=== PATIENT | male | born 1965 | race African-American/Black ===

== ENCOUNTER 2017-05-30 08:34 | Day surgery (SDC) | payer OTHER, SELFPAY ==
[2017-05-30] MEDS ORDERED: Acetaminophen 500 MG TAB PO SCH (09:00)
[2017-05-30] MEDS ORDERED: diphenhydrAMINE 25 MG CAP PO SCH (09:00)
[2017-05-30] MEDS ORDERED: Sodium Chloride 0.9% 20 ML ONE (09:04)
[2017-05-30 12:22] VITALS: TEMP 98.5
[2017-05-30 16:27] VITALS: BP 99/59
[2017-05-30 16:40] LABS: Anisocytosis SLIGHT = 6-15 cells (100X) (0-5/hpf); Band 2 % (5-11); Hematocrit 26.7 % (42.0-52.0); Mean Platelet Volume 6.5 fL (7.4-10.4); Neutrophil 73 % (42-75); White Blood Cell (WBC) Count 5.3 thou/uL (4.8-10.8)
== END 2017-05-30 16:20 | disposition home or self-care (01) ==
LOC: ONC/OP 08:34
PROVIDERS: ATTEND Internal Medicine Hematology & Oncology
PROC: 30233N1 Transfusion of Nonautologous Red Blood Cells into Peripheral Vein, Percutaneous Approach (ICD-10-PCS; principal; 2017-05-30)
DX: D64.9 Anemia, unspecified (principal); D69.6 Thrombocytopenia, unspecified; C90.00 Multiple myeloma not having achieved remission; F10.10 Alcohol abuse, uncomplicated; E87.1 Hypo-osmolality and hyponatremia; F17.210 Nicotine dependence, cigarettes, uncomplicated; M62.82 Rhabdomyolysis; I10 Essential (primary) hypertension; Z79.2 Long term (current) use of antibiotics; Z79.891 Long term (current) use of opiate analgesic; Z79.899 Other long term (current) drug therapy; Z98.890 Other specified postprocedural states
CPT/HCPCS: 36415; 36430; 85025; 86850; 86900; 86901; 99212; A4216; G0463; P9016

== ENCOUNTER 2017-06-19 08:02 | Day surgery (SDC) | payer MEDICAID ==
[2017-06-19] MEDS ORDERED: Sodium Chloride 0.9% 20 ML ONE (08:17)
[2017-06-19 08:53] VITALS: BP 121/80; TEMP 98.2
[2017-06-19 09:10] LABS: Calc. Creatinine Clearance 93 mL/min (70-130); Estimated GFR-MDRD Greater than 90
[2017-06-19] MEDS ORDERED: ZOLEDRONIC ACID IVPB SCH (09:45)
[2017-06-19] MEDS ORDERED: ADMIXTURE FEE IVPB SCH (09:45)
[2017-06-19] MEDS ORDERED: SODIUM CHLORIDE IVPB SCH (09:45)
[2017-06-19] MEDS ORDERED: Zoledronic Acid 4 MG, Admixture Fee 1 EACH in Sodium Chloride 0.9% 100 ML IVPB SCH (09:45)
== END 2017-06-19 13:41 | disposition home or self-care (01) ==
LOC: ONC/OP 08:02
PROVIDERS: ATTEND Nurse Practitioner Acute Care
DX: Z51.11 Encounter for antineoplastic chemotherapy (principal); C90.00 Multiple myeloma not having achieved remission; I10 Essential (primary) hypertension; F17.200 Nicotine dependence, unspecified, uncomplicated
CPT/HCPCS: 82565; 96365; A4216; J3489; J7050

== ENCOUNTER 2017-06-21 09:43 | Day surgery (SDC) | payer MEDICAID ==
[2017-06-21] MEDS ORDERED: BORTEZOMIB SC SCH (10:00)
[2017-06-21] MEDS ORDERED: ADMIXTURE FEE SC SCH (10:00)
[2017-06-21 10:10] VITALS: BP 106/73; TEMP 98.7
== END 2017-06-21 11:50 | disposition home or self-care (01) ==
LOC: ONC/OP 09:43
PROVIDERS: ATTEND Internal Medicine Hematology & Oncology
DX: Z51.11 Encounter for antineoplastic chemotherapy (principal); C90.00 Multiple myeloma not having achieved remission; D69.6 Thrombocytopenia, unspecified; E87.1 Hypo-osmolality and hyponatremia; F17.210 Nicotine dependence, cigarettes, uncomplicated; I12.9 Hypertensive chronic kidney disease with stage 1 through stage 4 chronic kidney disease, or unspecified chronic kidney disease; N18.2 Chronic kidney disease, stage 2 (mild); D64.9 Anemia, unspecified; J45.909 Unspecified asthma, uncomplicated; F41.8 Other specified anxiety disorders; Z79.2 Long term (current) use of antibiotics; Z79.891 Long term (current) use of opiate analgesic; Z79.899 Other long term (current) drug therapy; Z98.890 Other specified postprocedural states
CPT/HCPCS: 96401; J9041

== ENCOUNTER 2017-06-27 09:45 | Day surgery (SDC) | payer MEDICAID ==
[2017-06-27] MEDS ORDERED: ADMIXTURE FEE SC SCH (10:30)
[2017-06-27] MEDS ORDERED: BORTEZOMIB SC SCH (10:30)
[2017-06-27] MEDS ORDERED: Dexamethasone 4 MG TAB PO SCH (10:45)
[2017-06-27 15:58] VITALS: BP 143/78; TEMP 98.8
== END 2017-06-27 11:18 | disposition home or self-care (01) ==
LOC: ONC/OP 09:45
PROVIDERS: ATTEND Internal Medicine Hematology & Oncology
DX: Z51.11 Encounter for antineoplastic chemotherapy (principal); C90.00 Multiple myeloma not having achieved remission; I10 Essential (primary) hypertension; J45.909 Unspecified asthma, uncomplicated; F17.210 Nicotine dependence, cigarettes, uncomplicated; Z79.2 Long term (current) use of antibiotics; Z79.891 Long term (current) use of opiate analgesic; Z79.899 Other long term (current) drug therapy; Z98.890 Other specified postprocedural states
CPT/HCPCS: 96372; J8540; J9041

== ENCOUNTER 2017-07-06 10:06 | Day surgery (SDC) | payer MEDICAID ==
[~2017-07-06 10:06] MED LIST: ADMIXTURE FEE SC SCH; BORTEZOMIB SC SCH; Dexamethasone 4 MG TAB PO SCH
[2017-07-06 10:35] VITALS: BP 120/79; TEMP 97.9
== END 2017-07-06 14:04 | disposition home or self-care (01) ==
LOC: ONC/OP 10:06
PROVIDERS: ATTEND Internal Medicine Hematology & Oncology
DX: Z51.11 Encounter for antineoplastic chemotherapy (principal); C90.00 Multiple myeloma not having achieved remission; D69.6 Thrombocytopenia, unspecified; E87.1 Hypo-osmolality and hyponatremia; D64.9 Anemia, unspecified; I10 Essential (primary) hypertension; F17.210 Nicotine dependence, cigarettes, uncomplicated; F10.10 Alcohol abuse, uncomplicated; Z79.2 Long term (current) use of antibiotics; Z79.899 Other long term (current) drug therapy; Z98.890 Other specified postprocedural states
CPT/HCPCS: 96401; J9041

== ENCOUNTER 2017-07-12 09:26 | Day surgery (SDC) | payer MEDICAID ==
[2017-07-12] MEDS ORDERED: ADMIXTURE FEE SC SCH (09:45)
[2017-07-12] MEDS ORDERED: BORTEZOMIB SC SCH (09:45)
[2017-07-12 09:51] VITALS: BP 112/63; TEMP 98
== END 2017-07-12 10:56 | disposition home or self-care (01) ==
LOC: ONC/OP 09:26
PROVIDERS: ATTEND Internal Medicine Hematology & Oncology
DX: Z51.11 Encounter for antineoplastic chemotherapy (principal); C90.00 Multiple myeloma not having achieved remission; K59.03 Drug induced constipation; T40.605A Adverse effect of unspecified narcotics, initial encounter; T45.1X5A Adverse effect of antineoplastic and immunosuppressive drugs, initial encounter; I10 Essential (primary) hypertension; J45.909 Unspecified asthma, uncomplicated; F17.210 Nicotine dependence, cigarettes, uncomplicated; F10.10 Alcohol abuse, uncomplicated; R63.4 Abnormal weight loss; Z68.1 Body mass index [BMI] 19.9 or less, adult; Z79.82 Long term (current) use of aspirin; Z79.899 Other long term (current) drug therapy; Z79.891 Long term (current) use of opiate analgesic; Z98.890 Other specified postprocedural states
CPT/HCPCS: 36415; 82565; 96401; J9041

== ENCOUNTER 2017-07-19 09:34 | Day surgery (SDC) | payer MEDICAID ==
[2017-07-19] MEDS ORDERED: Sodium Chloride 0.9% 20 ML ONE (09:43)
[2017-07-19] MEDS ORDERED: ADMIXTURE FEE IVPB SCH (10:00)
[2017-07-19] MEDS ORDERED: SODIUM CHLORIDE IVPB SCH (10:00)
[2017-07-19] MEDS ORDERED: ZOLEDRONIC ACID IVPB SCH (10:00)
[2017-07-19] MEDS ORDERED: BORTEZOMIB SC SCH (10:00)
[2017-07-19] MEDS ORDERED: Dexamethasone 4 MG TAB PO SCH (10:00)
[2017-07-19] MEDS ORDERED: ADMIXTURE FEE SC SCH (10:00)
[2017-07-19] MEDS ORDERED: ZOMETA FS SCH (10:15)
== END 2017-07-19 12:07 | disposition home or self-care (01) ==
LOC: ONC/OP 09:34
PROVIDERS: ATTEND Internal Medicine Hematology & Oncology
DX: Z51.11 Encounter for antineoplastic chemotherapy (principal); C90.00 Multiple myeloma not having achieved remission; F10.10 Alcohol abuse, uncomplicated; F17.210 Nicotine dependence, cigarettes, uncomplicated; J45.909 Unspecified asthma, uncomplicated; I10 Essential (primary) hypertension; Z79.891 Long term (current) use of opiate analgesic; Z79.899 Other long term (current) drug therapy; Z98.890 Other specified postprocedural states
CPT/HCPCS: 96367; 96402; A4216; J1642; J3489; J7050; J8540; J9041

== ENCOUNTER 2017-07-26 09:41 | Day surgery (SDC) | payer MEDICAID, OTHER ==
[2017-07-26] MEDS ORDERED: Dexamethasone 4 MG TAB PO SCH ×2 (10:00→10:15)
[2017-07-26] MEDS ORDERED: BORTEZOMIB SC SCH ×2 (10:00→10:15)
[2017-07-26] MEDS ORDERED: SODIUM CHLORIDE 0.9% SC SCH (10:00)
[2017-07-26] MEDS ORDERED: REVLIMID PO SCH (10:00)
[2017-07-26] MEDS ORDERED: ADMIXTURE FEE SC SCH (10:15)
[2017-07-26 10:33] VITALS: BP 128/77
== END 2017-07-26 11:27 | disposition home or self-care (01) ==
LOC: ONC/OP 09:41
PROVIDERS: ATTEND Internal Medicine Hematology & Oncology
DX: Z51.11 Encounter for antineoplastic chemotherapy (principal); C90.00 Multiple myeloma not having achieved remission; F17.200 Nicotine dependence, unspecified, uncomplicated; F10.10 Alcohol abuse, uncomplicated
CPT/HCPCS: 36415; 80053; 82248; 83615; 83883; 84100; 84165; 84550; 96402; A4216; J8540; J9041

== ENCOUNTER 2017-08-02 10:46 | Day surgery (SDC) | payer OTHER ==
[2017-08-02] MEDS ORDERED: BORTEZOMIB SC SCH (11:15)
[2017-08-02] MEDS ORDERED: ADMIXTURE FEE CHEMO SC SCH (11:15)
[2017-08-02 11:31] VITALS: BP 111/59; TEMP 97.9
== END 2017-08-02 12:08 | disposition home or self-care (01) ==
LOC: ONC/OP 10:46
PROVIDERS: ATTEND Internal Medicine Hematology & Oncology
DX: Z51.11 Encounter for antineoplastic chemotherapy (principal); C90.00 Multiple myeloma not having achieved remission; C79.51 Secondary malignant neoplasm of bone; M54.5 Low back pain; S22.000S Wedge compression fracture of unspecified thoracic vertebra, sequela; K59.00 Constipation, unspecified; I10 Essential (primary) hypertension; J45.909 Unspecified asthma, uncomplicated; F10.11 Alcohol abuse, in remission; F17.200 Nicotine dependence, unspecified, uncomplicated; Z79.2 Long term (current) use of antibiotics; Z79.891 Long term (current) use of opiate analgesic; Z79.899 Other long term (current) drug therapy; Z98.890 Other specified postprocedural states
CPT/HCPCS: 96401; J9041

== ENCOUNTER 2017-08-09 09:28 | Day surgery (SDC) | payer OTHER ==
[2017-08-09 09:41] VITALS: BP 120/76
[2017-08-09] MEDS ORDERED: BORTEZOMIB SC SCH (09:45)
[2017-08-09] MEDS ORDERED: Dexamethasone 4 MG TAB PO SCH (10:00)
== END 2017-08-09 10:34 | disposition home or self-care (01) ==
LOC: ONC/OP 09:28
PROVIDERS: ATTEND Internal Medicine Hematology & Oncology
DX: Z51.11 Encounter for antineoplastic chemotherapy (principal); C90.00 Multiple myeloma not having achieved remission; C79.51 Secondary malignant neoplasm of bone; I10 Essential (primary) hypertension; J45.909 Unspecified asthma, uncomplicated; F17.210 Nicotine dependence, cigarettes, uncomplicated; F10.10 Alcohol abuse, uncomplicated
CPT/HCPCS: 96401; J8540; J9041

== ENCOUNTER 2017-08-16 10:06 | Day surgery (SDC) | payer OTHER ==
[2017-08-16 10:17] VITALS: BP 130/75; TEMP 97.4
[2017-08-16] MEDS ORDERED: Sodium Chloride 0.9% 20 ML ONE (10:31)
[2017-08-16] MEDS ORDERED: BORTEZOMIB SC SCH (11:15)
[2017-08-16] MEDS ORDERED: ADMIXTURE FEE SC SCH (11:15)
[2017-08-16] MEDS ORDERED: Zoledronic Acid 3 MG in Sodium Chloride 0.9% 100 ML IVPB SCH (11:30)
[2017-08-16] MEDS ORDERED: Dexamethasone 4 MG TAB PO SCH ×2 (11:30→11:45)
== END 2017-08-16 13:36 | disposition home or self-care (01) ==
LOC: ONC/OP 10:06
PROVIDERS: ATTEND Internal Medicine Hematology & Oncology
DX: Z51.11 Encounter for antineoplastic chemotherapy (principal); C90.00 Multiple myeloma not having achieved remission; C79.51 Secondary malignant neoplasm of bone; F17.210 Nicotine dependence, cigarettes, uncomplicated; F10.10 Alcohol abuse, uncomplicated; I10 Essential (primary) hypertension; J45.909 Unspecified asthma, uncomplicated; Z79.891 Long term (current) use of opiate analgesic; Z79.899 Other long term (current) drug therapy
CPT/HCPCS: 96365; 96401; A4216; J1642; J3489; J7050; J8540; J9041

== ENCOUNTER 2017-08-23 09:58 | Day surgery (SDC) | payer OTHER ==
[2017-08-23] MEDS ORDERED: BORTEZOMIB SC SCH (11:00)
[2017-08-23] MEDS ORDERED: ADMIXTURE FEE SC SCH (11:00)
== END 2017-08-23 11:42 | disposition home or self-care (01) ==
LOC: ONC/OP 09:58
PROVIDERS: ATTEND Internal Medicine Hematology & Oncology
DX: Z51.11 Encounter for antineoplastic chemotherapy (principal); C90.00 Multiple myeloma not having achieved remission; C79.51 Secondary malignant neoplasm of bone; G89.29 Other chronic pain; M54.9 Dorsalgia, unspecified; I10 Essential (primary) hypertension; J45.909 Unspecified asthma, uncomplicated; F17.210 Nicotine dependence, cigarettes, uncomplicated; F10.10 Alcohol abuse, uncomplicated; Z79.82 Long term (current) use of aspirin; Z79.891 Long term (current) use of opiate analgesic; Z79.899 Other long term (current) drug therapy; Z98.890 Other specified postprocedural states
CPT/HCPCS: 96402

== ENCOUNTER 2017-08-30 09:59 | Day surgery (SDC) | payer OTHER ==
[2017-08-30] MEDS ORDERED: BORTEZOMIB SC SCH (10:15)
[2017-08-30] MEDS ORDERED: ADMIXTURE FEE SC SCH (10:15)
[2017-08-30] MEDS ORDERED: Dexamethasone 4 MG TAB PO SCH (11:00)
[2017-08-30 11:07] VITALS: BP 134/82; TEMP 98
== END 2017-08-30 11:07 | disposition home or self-care (01) ==
LOC: ONC/OP 09:59
PROVIDERS: ATTEND Internal Medicine Hematology & Oncology
DX: Z51.11 Encounter for antineoplastic chemotherapy (principal); C90.00 Multiple myeloma not having achieved remission; G89.29 Other chronic pain; M54.9 Dorsalgia, unspecified; I10 Essential (primary) hypertension; J45.909 Unspecified asthma, uncomplicated; F17.210 Nicotine dependence, cigarettes, uncomplicated; F10.10 Alcohol abuse, uncomplicated; Z79.82 Long term (current) use of aspirin; Z79.899 Other long term (current) drug therapy; Z98.890 Other specified postprocedural states
CPT/HCPCS: 96401; J8540; J9041

== ENCOUNTER 2017-08-30 12:12 | Outpatient (CLI) | payer OTHER ==
--- NOTE | 2017-08-30 15:58 | MRI ---
MR OF THE LUMBAR SPINE WITH AND WITHOUT IV CONTRAST 08/30/17 INDICATION: History of multiple myeloma with chronic low back pain and bilateral leg pain. TECHNIQUE: Multiplanar and multisequence MR images were obtained of the lumbar spine with and without contrast. 11 mL of Multihance was utilized for the examination. No MR comparisons of the lumbar spine are avail able. FINDINGS: The conus is seen to terminate at approximately L1. There are chronic appearing compression abnormali ties involving L1, L2, L3, L4, and L5. There is diffuse speckled areas of diminished T1 signal intens ity consistent with patient's history of multiple myeloma. There is a prominent enhancing T2 hyperint ense myeloma lesion within the right lateral aspect of the posterior T11 cerebral body measuring 1.3 cm. Additional enhancing lesions are also present throughout the spinous processes as well as the bi lateral lower ribs. At L5-S1, there is a mild broad based bulge and mild facet joint degenerative change inducing mild to moderate bilateral neural foraminal narrowing. At L4-5 level, there is a broad based bulge with facet joint degenerative change inducing mild to mod erate bilateral neural foraminal narrowing. At L3-4, there is a broad based bulge with facet joint degenerative change inducing mild to moderate bilateral neural foraminal narrowing. At L2-3, there is a broad based bulge with facet joint degenerative change inducing mild to moderate bilateral neural foraminal narrowing. At L1-2, there is a broad based bulge with facet joint degenerative change inducing mild to moderate bilateral neural foraminal narrowing. At T12-L1, three is a mild broad based disc bulge with facet hypertrophy inducing mild to moderate bi lateral neural foraminal narrowing. At T11-12, there is a broad based bulge with a superimposed right foraminal protrusion inducing sever e narrowing of the right T11-12 neural foramina. There is mild to moderate left neural foraminal narr owing. IMPRESSION: 1. Diffuse metastatic involvement of the bone marrow of the lumbosacral spine. 2. Chronic pathologic compression abnormalities of the lumbar spine. 3. Moderate multilevel spondylosis of the lumbar spine with multilevel neural foraminal narrowin g. This is most severe on the right at T11-T12 where there is a right foraminal disc protrusion causi ng severe narrowing of the T11-T12 neural foramina. 4. No definite new acute fracture is demonstrated. POS: YASMIN
== END 2017-08-30 12:13 | disposition home or self-care (01) ==
LOC: SCSMRI 12:12
PROVIDERS: ATTEND Internal Medicine Hematology & Oncology
DX: C90.00 Multiple myeloma not having achieved remission (principal); C79.51 Secondary malignant neoplasm of bone; M54.5 Low back pain; S22.000S Wedge compression fracture of unspecified thoracic vertebra, sequela; G95.20 Unspecified cord compression; M47.896 Other spondylosis, lumbar region; M99.82 Other biomechanical lesions of thoracic region; M51.24 Other intervertebral disc displacement, thoracic region
CPT/HCPCS: 72158; 96401; J8540; J9041

== ENCOUNTER 2017-09-06 11:18 | Day surgery (SDC) | payer OTHER ==
[2017-09-06] MEDS ORDERED: BORTEZOMIB SC SCH (11:30)
[2017-09-06] MEDS ORDERED: ADMIXTURE FEE SC SCH (11:30)
[2017-09-06] MEDS ORDERED: Dexamethasone 4 MG TAB PO SCH (12:15)
== END 2017-09-06 13:56 | disposition home or self-care (01) ==
LOC: ONC/OP 11:18
PROVIDERS: ATTEND Internal Medicine Hematology & Oncology
DX: Z51.11 Encounter for antineoplastic chemotherapy (principal); C90.00 Multiple myeloma not having achieved remission; C79.51 Secondary malignant neoplasm of bone; I10 Essential (primary) hypertension; J45.909 Unspecified asthma, uncomplicated; F17.210 Nicotine dependence, cigarettes, uncomplicated; F10.10 Alcohol abuse, uncomplicated; Z79.82 Long term (current) use of aspirin; Z79.891 Long term (current) use of opiate analgesic; Z79.899 Other long term (current) drug therapy; Z98.890 Other specified postprocedural states
CPT/HCPCS: 36415; 80053; 82248; 83615; 84100; 84550; 96401; J8540; J9041

== ENCOUNTER 2017-09-13 10:02 | Day surgery (SDC) | payer OTHER ==
[2017-09-13] MEDS ORDERED: Sodium Chloride 0.9% 20 ML ONE (10:12)
[2017-09-13 10:15] VITALS: BP 174/79; TEMP 97.8
[2017-09-13] MEDS ORDERED: ADMIXTURE FEE IVPB SCH (10:15)
[2017-09-13] MEDS ORDERED: ADMIXTURE FEE SC SCH (10:15)
[2017-09-13] MEDS ORDERED: BORTEZOMIB SC SCH (10:15)
[2017-09-13] MEDS ORDERED: SODIUM CHLORIDE IVPB SCH (10:15)
[2017-09-13] MEDS ORDERED: ZOLEDRONIC ACID IVPB SCH (10:15)
[2017-09-13] MEDS ORDERED: Dexamethasone 4 MG TAB PO SCH (10:30)
== END 2017-09-13 12:31 | disposition home or self-care (01) ==
LOC: ONC/OP 10:02
PROVIDERS: ATTEND Internal Medicine Hematology & Oncology
DX: Z51.11 Encounter for antineoplastic chemotherapy (principal); C90.00 Multiple myeloma not having achieved remission; C79.51 Secondary malignant neoplasm of bone; I10 Essential (primary) hypertension; J45.909 Unspecified asthma, uncomplicated; F17.210 Nicotine dependence, cigarettes, uncomplicated; F10.11 Alcohol abuse, in remission; Z79.82 Long term (current) use of aspirin; Z79.891 Long term (current) use of opiate analgesic; Z79.899 Other long term (current) drug therapy
CPT/HCPCS: 36415; 82565; 96365; 96401; A4216; J3489; J7050; J9041

== ENCOUNTER 2017-09-20 10:36 | Day surgery (SDC) | payer OTHER ==
[2017-09-20] MEDS ORDERED: SODIUM CHLORIDE 0.9% SC SCH (11:00)
[2017-09-20] MEDS ORDERED: BORTEZOMIB SC SCH (11:00)
[2017-09-20] MEDS ORDERED: Dexamethasone 4 MG TAB PO SCH (11:15)
[2017-09-20 11:32] VITALS: BP 136/71; TEMP 98.2
== END 2017-09-20 12:14 | disposition home or self-care (01) ==
LOC: ONC/OP 10:36
PROVIDERS: ATTEND Internal Medicine Hematology & Oncology
DX: Z51.11 Encounter for antineoplastic chemotherapy (principal); C90.00 Multiple myeloma not having achieved remission; C79.51 Secondary malignant neoplasm of bone; K59.09 Other constipation; G89.29 Other chronic pain; I10 Essential (primary) hypertension; J45.909 Unspecified asthma, uncomplicated; F10.10 Alcohol abuse, uncomplicated; F17.200 Nicotine dependence, unspecified, uncomplicated; Z79.899 Other long term (current) drug therapy; Z98.890 Other specified postprocedural states
CPT/HCPCS: 96401; J8540; J9041

== ENCOUNTER 2017-09-27 11:35 | Day surgery (SDC) | payer OTHER ==
[2017-09-27 11:58] VITALS: BP 150/87; TEMP 97.5
[2017-09-27] MEDS ORDERED: valACYclovir 500 MG TAB PO SCH (12:00)
[2017-09-27] MEDS ORDERED: Dexamethasone 4 MG TAB PO SCH (12:00)
[2017-09-27] MEDS ORDERED: BORTEZOMIB SC SCH (12:00)
[2017-09-27] MEDS ORDERED: REVLIMID PO SCH (12:15)
[2017-09-28] MEDS ORDERED: valACYclovir 500 MG TAB PO SCH (09:00)
[2017-09-28 15:22] LABS: Kappa Lambda Light Chain Ratio 3.68 (0.26-1.65); Kappa Light Chains 22.1 mg/L (3.3-19.4)
== END 2017-09-27 13:09 | disposition home or self-care (01) ==
LOC: ONC/OP 11:35
PROVIDERS: ATTEND Internal Medicine Hematology & Oncology
DX: Z51.11 Encounter for antineoplastic chemotherapy (principal); C90.00 Multiple myeloma not having achieved remission; C79.51 Secondary malignant neoplasm of bone; K59.09 Other constipation; M54.9 Dorsalgia, unspecified; G89.29 Other chronic pain; I10 Essential (primary) hypertension; J45.909 Unspecified asthma, uncomplicated; F10.10 Alcohol abuse, uncomplicated; F17.200 Nicotine dependence, unspecified, uncomplicated; Z79.2 Long term (current) use of antibiotics; Z79.891 Long term (current) use of opiate analgesic; Z79.899 Other long term (current) drug therapy
CPT/HCPCS: 36415; 83883; 84165; 96401; J8540; J9041

== ENCOUNTER 2017-10-04 11:20 | Day surgery (SDC) | payer OTHER ==
[2017-10-04] MEDS ORDERED: ADMIXTURE FEE SC SCH (11:30)
[2017-10-04] MEDS ORDERED: BORTEZOMIB SC SCH (11:30)
[2017-10-04] MEDS ORDERED: Dexamethasone 4 MG TAB PO SCH (12:00)
== END 2017-10-04 13:20 | disposition home or self-care (01) ==
LOC: ONC/OP 11:20
PROVIDERS: ATTEND Internal Medicine Hematology & Oncology
DX: Z51.11 Encounter for antineoplastic chemotherapy (principal); C90.00 Multiple myeloma not having achieved remission; C79.51 Secondary malignant neoplasm of bone; G89.29 Other chronic pain; M54.9 Dorsalgia, unspecified; I10 Essential (primary) hypertension; J45.909 Unspecified asthma, uncomplicated; F17.210 Nicotine dependence, cigarettes, uncomplicated; F10.10 Alcohol abuse, uncomplicated; Z79.82 Long term (current) use of aspirin; Z79.899 Other long term (current) drug therapy
CPT/HCPCS: 96401; J8540; J9041

== ENCOUNTER 2017-10-11 10:29 | Day surgery (SDC) | payer OTHER ==
[2017-10-11] MEDS ORDERED: Sodium Chloride 0.9% 20 ML ONE (10:38)
[2017-10-11] MEDS ORDERED: Zoledronic Acid 3 MG in Sodium Chloride 0.9% 100 ML IVPB SCH (11:00)
[2017-10-11] MEDS ORDERED: ADMIXTURE FEE CHEMO SC SCH (11:00)
[2017-10-11] MEDS ORDERED: BORTEZOMIB SC SCH (11:00)
[2017-10-11 11:02] VITALS: BP 156/101; TEMP 98.2
[2017-10-11] MEDS ORDERED: Dexamethasone 4 MG TAB PO SCH (12:15)
== END 2017-10-11 12:51 | disposition home or self-care (01) ==
LOC: ONC/OP 10:29
PROVIDERS: ATTEND Internal Medicine Hematology & Oncology
DX: Z51.11 Encounter for antineoplastic chemotherapy (principal); C90.00 Multiple myeloma not having achieved remission; C79.51 Secondary malignant neoplasm of bone; M54.9 Dorsalgia, unspecified; R07.81 Pleurodynia; G89.29 Other chronic pain; K59.09 Other constipation; I10 Essential (primary) hypertension; J45.909 Unspecified asthma, uncomplicated; F10.10 Alcohol abuse, uncomplicated; F17.200 Nicotine dependence, unspecified, uncomplicated; Z79.891 Long term (current) use of opiate analgesic; Z79.2 Long term (current) use of antibiotics; Z79.899 Other long term (current) drug therapy
CPT/HCPCS: 96365; 96401; A4216; J3489; J7050; J8540; J9041

== ENCOUNTER 2017-10-18 15:56 | Day surgery (SDC) | payer OTHER ==
[2017-10-18 16:13] VITALS: BP 145/88; TEMP 97.9
[2017-10-18] MEDS ORDERED: valACYclovir 500 MG TAB PO SCH (16:15)
[2017-10-18] MEDS ORDERED: Dexamethasone 4 MG TAB PO SCH (16:15)
[2017-10-18] MEDS ORDERED: BORTEZOMIB SC SCH (16:30)
[2017-10-18] MEDS ORDERED: PRE FILLED SC SCH (16:30)
== END 2017-10-18 17:41 | disposition home or self-care (01) ==
LOC: ONC/OP 15:56
PROVIDERS: ATTEND Internal Medicine Hematology & Oncology
DX: Z51.11 Encounter for antineoplastic chemotherapy (principal); C90.00 Multiple myeloma not having achieved remission; C79.51 Secondary malignant neoplasm of bone; K59.09 Other constipation; I10 Essential (primary) hypertension; J45.909 Unspecified asthma, uncomplicated; G89.29 Other chronic pain; M54.9 Dorsalgia, unspecified; F17.210 Nicotine dependence, cigarettes, uncomplicated; F10.10 Alcohol abuse, uncomplicated; Z79.82 Long term (current) use of aspirin; Z79.891 Long term (current) use of opiate analgesic; Z79.899 Other long term (current) drug therapy
CPT/HCPCS: 96401; J8540; J9041

== ENCOUNTER 2017-10-25 11:07 | Day surgery (SDC) | payer OTHER ==
[2017-10-25] MEDS ORDERED: BORTEZOMIB SC SCH (11:30)
[2017-10-25] MEDS ORDERED: ADMIXTURE FEE SC SCH (11:30)
[2017-10-25] MEDS ORDERED: Dexamethasone 4 MG TAB PO SCH (11:45)
[2017-10-25 11:49] VITALS: BP 135/76; TEMP 97.9
== END 2017-10-25 11:50 | disposition home or self-care (01) ==
LOC: ONC/OP 11:07
PROVIDERS: ATTEND Internal Medicine Hematology & Oncology
DX: Z51.11 Encounter for antineoplastic chemotherapy (principal); C90.00 Multiple myeloma not having achieved remission; C79.51 Secondary malignant neoplasm of bone; K59.09 Other constipation; I10 Essential (primary) hypertension; J45.909 Unspecified asthma, uncomplicated; F17.210 Nicotine dependence, cigarettes, uncomplicated; F10.10 Alcohol abuse, uncomplicated; Z79.82 Long term (current) use of aspirin; Z79.52 Long term (current) use of systemic steroids; Z79.891 Long term (current) use of opiate analgesic; Z79.899 Other long term (current) drug therapy
CPT/HCPCS: 96409; J8540; J9041

== ENCOUNTER 2017-11-01 10:59 | Day surgery (SDC) | payer OTHER ==
[2017-11-01] MEDS ORDERED: Dexamethasone 4 MG TAB PO SCH (11:15)
[2017-11-01] MEDS ORDERED: ADMIXTURE FEE SC SCH (11:45)
[2017-11-01] MEDS ORDERED: BORTEZOMIB SC SCH (11:45)
[2017-11-01 12:06] VITALS: BP 147/87; TEMP 98
== END 2017-11-01 12:07 | disposition home or self-care (01) ==
LOC: ONC/OP 10:59
PROVIDERS: ATTEND Internal Medicine Hematology & Oncology
DX: Z51.11 Encounter for antineoplastic chemotherapy (principal); C90.00 Multiple myeloma not having achieved remission; C79.51 Secondary malignant neoplasm of bone; I10 Essential (primary) hypertension; J45.909 Unspecified asthma, uncomplicated; F10.10 Alcohol abuse, uncomplicated; F17.200 Nicotine dependence, unspecified, uncomplicated; Z79.82 Long term (current) use of aspirin; Z79.899 Other long term (current) drug therapy; Z98.890 Other specified postprocedural states
CPT/HCPCS: 96401; J8540; J9041

== ENCOUNTER 2017-11-08 12:44 | Day surgery (SDC) | payer OTHER ==
[2017-11-08 12:56] VITALS: BP 148/82; TEMP 97.8
[2017-11-08] MEDS ORDERED: SODIUM CHLORIDE IVPB SCH (13:00)
[2017-11-08] MEDS ORDERED: ZOLEDRONIC ACID IVPB SCH (13:00)
[2017-11-08] MEDS ORDERED: BORTEZOMIB SC SCH (13:00)
[2017-11-08] MEDS ORDERED: ADMIXTURE FEE IVPB SCH (13:00)
[2017-11-08] MEDS ORDERED: ADMIXTURE FEE SC SCH (13:00)
[2017-11-08] MEDS ORDERED: Dexamethasone 4 MG TAB PO SCH (13:15)
== END 2017-11-08 14:05 | disposition home or self-care (01) ==
LOC: ONC/OP 12:44
PROVIDERS: ATTEND Internal Medicine Hematology & Oncology
DX: Z51.11 Encounter for antineoplastic chemotherapy (principal); C90.00 Multiple myeloma not having achieved remission; C79.51 Secondary malignant neoplasm of bone; I10 Essential (primary) hypertension; J45.909 Unspecified asthma, uncomplicated; F17.210 Nicotine dependence, cigarettes, uncomplicated; F10.10 Alcohol abuse, uncomplicated; K59.09 Other constipation; Z79.82 Long term (current) use of aspirin; Z79.891 Long term (current) use of opiate analgesic; Z79.899 Other long term (current) drug therapy
CPT/HCPCS: 36415; 80053; 82248; 83615; 83883; 84100; 84165; 84550; 96365; 96401; J3489; J7050; J8540; J9041

== ENCOUNTER 2017-11-15 11:37 | Day surgery (SDC) | payer OTHER ==
[2017-11-15] MEDS ORDERED: BORTEZOMIB SC SCH (11:45)
[2017-11-15] MEDS ORDERED: Dexamethasone 4 MG TAB PO SCH (11:45)
[2017-11-15] MEDS ORDERED: PRE FILLED SC SCH (11:45)
== END 2017-11-15 12:42 | disposition home or self-care (01) ==
LOC: ONC/OP 11:37
PROVIDERS: ATTEND Internal Medicine Hematology & Oncology
DX: Z51.11 Encounter for antineoplastic chemotherapy (principal); C90.00 Multiple myeloma not having achieved remission; C79.51 Secondary malignant neoplasm of bone; K59.09 Other constipation; I10 Essential (primary) hypertension; J45.909 Unspecified asthma, uncomplicated; F17.210 Nicotine dependence, cigarettes, uncomplicated; F10.10 Alcohol abuse, uncomplicated; Z79.82 Long term (current) use of aspirin; Z79.52 Long term (current) use of systemic steroids; Z79.891 Long term (current) use of opiate analgesic; Z79.899 Other long term (current) drug therapy
CPT/HCPCS: 36415; 80048; 80076; 84439; 84443; 96401; J8540; J9041

== ENCOUNTER 2017-11-22 12:41 | Day surgery (SDC) | payer OTHER ==
[2017-11-22 12:54] VITALS: BP 160/78; TEMP 97.9
[2017-11-22] MEDS ORDERED: ADMIXTURE FEE SC SCH (13:00)
[2017-11-22] MEDS ORDERED: BORTEZOMIB SC SCH (13:00)
[2017-11-22] MEDS ORDERED: Dexamethasone 4 MG TAB PO SCH (13:15)
== END 2017-11-22 18:24 | disposition home or self-care (01) ==
LOC: ONC/OP 12:41
PROVIDERS: ATTEND Internal Medicine Hematology & Oncology
DX: Z51.11 Encounter for antineoplastic chemotherapy (principal); C90.00 Multiple myeloma not having achieved remission; C79.51 Secondary malignant neoplasm of bone; K59.09 Other constipation; I10 Essential (primary) hypertension; J45.909 Unspecified asthma, uncomplicated; F10.10 Alcohol abuse, uncomplicated; F17.200 Nicotine dependence, unspecified, uncomplicated; Z79.891 Long term (current) use of opiate analgesic; Z79.2 Long term (current) use of antibiotics; Z79.899 Other long term (current) drug therapy
CPT/HCPCS: 96401; J8540; J9041

== ENCOUNTER 2017-12-06 12:46 | Day surgery (SDC) | payer OTHER ==
[2017-12-06] MEDS ORDERED: Zoledronic Acid 3 MG in Sodium Chloride 0.9% 100 ML IVPB SCH (13:00)
[2017-12-06 13:22] VITALS: BP 145/92; TEMP 98.2
== END 2017-12-06 14:18 | disposition home or self-care (01) ==
LOC: ONC/OP 12:46
PROVIDERS: ATTEND Internal Medicine Hematology & Oncology
DX: Z51.11 Encounter for antineoplastic chemotherapy (principal); C90.00 Multiple myeloma not having achieved remission; C79.51 Secondary malignant neoplasm of bone; K59.09 Other constipation; I10 Essential (primary) hypertension; J45.909 Unspecified asthma, uncomplicated; F10.10 Alcohol abuse, uncomplicated; F17.200 Nicotine dependence, unspecified, uncomplicated; Z79.2 Long term (current) use of antibiotics; Z79.891 Long term (current) use of opiate analgesic; Z79.899 Other long term (current) drug therapy
CPT/HCPCS: 80053; 82248; 83615; 84100; 84165; 84550; 96365; J3489; J7050

== ENCOUNTER 2018-01-03 15:05 | Day surgery (SDC) | payer OTHER ==
[2018-01-03] MEDS ORDERED: Sodium Chloride 0.9% 20 ML ONE (15:15)
[2018-01-03] MEDS ORDERED: Zoledronic Acid 3 MG in Sodium Chloride 0.9% 100 ML IVPB SCH (15:30)
[2018-01-03 15:41] VITALS: BP 139/81; TEMP 97.7
== END 2018-01-03 16:32 | disposition home or self-care (01) ==
LOC: ONC/OP 15:05
PROVIDERS: ATTEND Internal Medicine Hematology & Oncology
DX: Z51.11 Encounter for antineoplastic chemotherapy (principal); C90.00 Multiple myeloma not having achieved remission; C79.51 Secondary malignant neoplasm of bone; F17.200 Nicotine dependence, unspecified, uncomplicated; I10 Essential (primary) hypertension; S22.000S Wedge compression fracture of unspecified thoracic vertebra, sequela; M54.5 Low back pain; Z79.82 Long term (current) use of aspirin; Z79.899 Other long term (current) drug therapy
CPT/HCPCS: 36415; 80053; 82248; 83615; 84100; 84165; 84550; 96365; A4216; J3489; J7050

== ENCOUNTER 2018-01-31 12:47 | Day surgery (SDC) | payer OTHER ==
[2018-01-31] MEDS ORDERED: Zoledronic Acid 3 MG in Sodium Chloride 0.9% 100 ML IVPB SCH (13:00)
[2018-01-31] MEDS ORDERED: Dexamethasone 4 MG TAB PO SCH (13:00)
[2018-01-31 13:06] VITALS: BP 124/74; TEMP 98.3
[2018-01-31] MEDS ORDERED: ADMIXTURE FEE CHEMO SC SCH (13:15)
[2018-01-31] MEDS ORDERED: BORTEZOMIB SC SCH (13:15)
[2018-02-01] MEDS ORDERED: REVLIMID PO SCH (09:00)
[2018-02-01] MEDS ORDERED: valACYclovir 500 MG TAB PO SCH (09:00)
== END 2018-01-31 14:17 | disposition home or self-care (01) ==
LOC: ONC/OP 12:47
PROVIDERS: ATTEND Internal Medicine Hematology & Oncology
DX: Z51.11 Encounter for antineoplastic chemotherapy (principal); C90.00 Multiple myeloma not having achieved remission; C79.51 Secondary malignant neoplasm of bone; S22.000S Wedge compression fracture of unspecified thoracic vertebra, sequela; K59.09 Other constipation; I10 Essential (primary) hypertension; J45.909 Unspecified asthma, uncomplicated; F17.200 Nicotine dependence, unspecified, uncomplicated; Z79.899 Other long term (current) drug therapy; Z79.82 Long term (current) use of aspirin
CPT/HCPCS: 36415; 80053; 82248; 83615; 83883; 84100; 84165; 84550; 96365; 96375; 96401; J3489; J7050; J8540; J9041

== ENCOUNTER 2018-02-14 10:21 | Day surgery (SDC) | payer OTHER ==
[2018-02-14 11:33] VITALS: BP 111/59; TEMP 98.1
[2018-02-14] MEDS ORDERED: ADMIXTURE FEE CHEMO SC SCH (12:15)
[2018-02-14] MEDS ORDERED: BORTEZOMIB SC SCH (12:15)
[2018-02-14] MEDS ORDERED: Dexamethasone 4 MG TAB PO SCH (12:15)
== END 2018-02-14 12:31 | disposition home or self-care (01) ==
LOC: ONC/OP 10:21
PROVIDERS: ATTEND Internal Medicine Hematology & Oncology
DX: Z51.11 Encounter for antineoplastic chemotherapy (principal); C79.51 Secondary malignant neoplasm of bone; C90.00 Multiple myeloma not having achieved remission; S22.000S Wedge compression fracture of unspecified thoracic vertebra, sequela; I10 Essential (primary) hypertension; E55.9 Vitamin D deficiency, unspecified; K59.09 Other constipation; J45.909 Unspecified asthma, uncomplicated; F17.200 Nicotine dependence, unspecified, uncomplicated; Z79.82 Long term (current) use of aspirin; Z79.899 Other long term (current) drug therapy
CPT/HCPCS: 80048; 80061; 80076; 82306; 84439; 84443; 96401; G0103; J8540; J9041

== ENCOUNTER 2018-02-21 11:06 | Day surgery (SDC) | payer OTHER ==
[2018-02-21] MEDS ORDERED: PRE FILLED SC SCH (11:15)
[2018-02-21] MEDS ORDERED: Dexamethasone 4 MG TAB PO SCH (11:15)
[2018-02-21] MEDS ORDERED: BORTEZOMIB SC SCH (11:15)
[2018-02-21 11:18] VITALS: BP 111/67; TEMP 97.9
[2018-02-22] MEDS ORDERED: valACYclovir 500 MG TAB PO SCH (09:00)
== END 2018-02-21 12:48 | disposition home or self-care (01) ==
LOC: ONC/OP 11:06
PROVIDERS: ATTEND Internal Medicine Hematology & Oncology
DX: Z51.11 Encounter for antineoplastic chemotherapy (principal); C90.00 Multiple myeloma not having achieved remission; C79.51 Secondary malignant neoplasm of bone; S22.000S Wedge compression fracture of unspecified thoracic vertebra, sequela; K59.09 Other constipation; I10 Essential (primary) hypertension; J45.909 Unspecified asthma, uncomplicated; F17.200 Nicotine dependence, unspecified, uncomplicated; Z79.82 Long term (current) use of aspirin; Z79.899 Other long term (current) drug therapy
CPT/HCPCS: 96401; J8540; J9041

== ENCOUNTER 2018-03-07 12:33 | Day surgery (SDC) | payer OTHER ==
[2018-03-07] MEDS ORDERED: ADMIXTURE FEE SC SCH (13:15)
[2018-03-07] MEDS ORDERED: Zoledronic Acid 3 MG in Sodium Chloride 0.9% 100 ML IVPB SCH (13:15)
[2018-03-07] MEDS ORDERED: BORTEZOMIB SC SCH (13:15)
[2018-03-07] MEDS ORDERED: Dexamethasone 4 MG TAB PO SCH (14:00)
[2018-03-07 19:08] VITALS: BP 115/72; TEMP 98.7
== END 2018-03-07 19:08 | disposition home or self-care (01) ==
LOC: ONC/OP 12:33
PROVIDERS: ATTEND Internal Medicine Hematology & Oncology
DX: Z51.11 Encounter for antineoplastic chemotherapy (principal); C90.00 Multiple myeloma not having achieved remission; C79.51 Secondary malignant neoplasm of bone; K59.09 Other constipation; I10 Essential (primary) hypertension; J45.909 Unspecified asthma, uncomplicated; F17.210 Nicotine dependence, cigarettes, uncomplicated; F10.10 Alcohol abuse, uncomplicated; Z79.891 Long term (current) use of opiate analgesic; Z79.899 Other long term (current) drug therapy
CPT/HCPCS: 36415; 82565; 96365; 96401; J3489; J7050; J8540; J9041

== ENCOUNTER 2018-03-14 14:53 | Day surgery (SDC) | payer OTHER ==
[2018-03-14] MEDS ORDERED: Dexamethasone 4 MG TAB PO SCH (15:15)
[2018-03-14] MEDS ORDERED: BORTEZOMIB SC SCH (15:15)
[2018-03-14] MEDS ORDERED: ADMIXTURE FEE SC SCH (15:15)
[2018-03-14 15:25] VITALS: BP 176/96; TEMP 98
[2018-03-15] MEDS ORDERED: valACYclovir 500 MG TAB PO SCH (09:00)
== END 2018-03-14 15:46 | disposition home or self-care (01) ==
LOC: ONC/OP 14:53
PROVIDERS: ATTEND Internal Medicine Hematology & Oncology
DX: Z51.11 Encounter for antineoplastic chemotherapy (principal); C90.00 Multiple myeloma not having achieved remission; C79.51 Secondary malignant neoplasm of bone; K59.09 Other constipation; I10 Essential (primary) hypertension; J45.909 Unspecified asthma, uncomplicated; F17.210 Nicotine dependence, cigarettes, uncomplicated; F10.10 Alcohol abuse, uncomplicated; Z79.891 Long term (current) use of opiate analgesic; Z79.899 Other long term (current) drug therapy
CPT/HCPCS: 36415; 80053; 80307; 80326; 80331; 80334; 80337; 80341; 80344; 80346; 80348; 80353; 80354; 80355; 80357; 80358; 80359; 80360; 80361; 80364; 80365; 80366; 80367; 80368; 80370; 80371; 80372; 80377; 82248; 83615; 83883; 84100; 84165; 84550; 96401; J8540; J9041

== ENCOUNTER 2018-03-28 15:43 | Day surgery (SDC) | payer OTHER ==
[2018-03-28] MEDS ORDERED: Dexamethasone 4 MG TAB PO SCH (16:15)
[2018-03-28] MEDS ORDERED: ADMIXTURE FEE CHEMO SC SCH (16:15)
[2018-03-28] MEDS ORDERED: BORTEZOMIB SC SCH (16:15)
[2018-03-28 17:08] VITALS: BP 144/81; TEMP 97.7
== END 2018-03-28 17:12 | disposition home or self-care (01) ==
LOC: ONC/OP 15:43
PROVIDERS: ATTEND Internal Medicine Hematology & Oncology
DX: Z51.11 Encounter for antineoplastic chemotherapy (principal); C90.00 Multiple myeloma not having achieved remission; M54.5 Low back pain; S22.000S Wedge compression fracture of unspecified thoracic vertebra, sequela
CPT/HCPCS: 96401; J8540; J9041

== ENCOUNTER 2018-04-30 05:43 | Inpatient (IN) | payer OTHER ==
[2018-04-30] MEDS ORDERED: Fentanyl 100 MCG/2 ML VIAL ONE (06:46)
[2018-04-30] MEDS ORDERED: Bisacodyl 5 MG TAB PO PRN ×2 (08:21→09:28)
[2018-04-30] MEDS ORDERED: Ondansetron ODT 4 MG TAB PO PRN (08:21)
[2018-04-30] MEDS ORDERED: Acetaminophen 325 MG TAB PO PRN ×2 (08:21→09:28)
[2018-04-30] MEDS ORDERED: Milk Of Magnesia 30 ML UDCUP PO PRN ×2 (08:21→09:28)
[2018-04-30] MEDS ORDERED: Polyethylene Glycol 3350 17 GM Packet PO PRN (08:24)
[2018-04-30 08:32] LABS: Troponin I Less than 0.010 ng/mL (< 0.028)
[2018-04-30] MEDS ORDERED: Sodium Chloride 0.9% 1,000 ML IV SCH (09:28)
[2018-04-30] MEDS ORDERED: Famotidine 20 MG TAB ONE (09:31)
--- NOTE | 2018-04-30 10:19 | HP ---
CHIEF COMPLAINT: Chest pain. HISTORY OF PRESENT ILLNESS: This patient is a 53-year-old male diagnosed with plasma cell myeloma in 2016. He has been following with Dr. Haley, but reports he has not seen Dr. Haley in her office in about a month, even though he was supposed to have some followup in that timeframe. He reports a bout 3 days ago he started experiencing some abdominal and chest discomfort. He believes it is equal ly distributed primarily in the epigastrium and chest area. He describes it as a crampy type pain as sociated with some shortness of breath, some nausea and some lightheadedness. He has not had a bowel movement in 4 days and states this is abnormal for him. He does take Linzess daily, but has had con stipation in the past, so severe that required hospitalization. He reports that the current symptoms are very similar to the chest pain symptoms that he experienced on his initial presentation when he was diagnosed with the multiple myeloma. REVIEW OF SYSTEMS: Notable for chronic lower backache, some blurry vision and about a 15 pound weigh t loss in the last month with a diminished appetite. He also reports chills, but no specific fevers. Otherwise a 10-system review is negative other than those things mentioned in the history of presen t illness. PAST MEDICAL HISTORY: Notable for the above mentioned multiple myeloma diagnosed 03/2017. He also h as a history of hypertension, asthma, chronic normocytic anemia, tobacco abuse, and history of alcoho l abuse. Of note, the patient did have stress testing in 03/2017, which was negative. He also had a VQ scan at that time which was also negative. He had some acute renal injury at that time coleman carlos a CT angiogram. FAMILY HISTORY: Mother had a stroke, otherwise there is no family history of significant cancer or c oronary artery disease. PAST SURGICAL HISTORY: Left ankle surgery. SOCIAL HISTORY: The patient has a history of drinking up to a 12-pack of beer per week, along with s ome hard liquor. He reports that he is no longer drinking alcohol. He previously smoked a pack a da y. He is down to less than half a pack per day. ALLERGIES: None. MEDICATIONS: B12 1000 mcg p.o. daily, ferrous sulfate 325 mg p.o. daily, folic acid 1 mg p.o. daily, metoprolol 25 mg b.i.d., pantoprazole 40 mg every day, amlodipine 10 mg daily, multivitamin 1 p.o. daily, valacyclovir 500 mg p.o. daily. Methadone dose is unknown, York 5/325 one p.o. q.6h. p.r.n. pain. PHYSICAL EXAMINATION: VITAL SIGNS: BP 137/81, pulse 59, respirations 18, temperature 98.5, O2 sat 99% on room air. GENERAL APPEARANCE: Age appropriate male. He is in no distress. He appears slightly uncomfortable. He is thin. HEENT: PERRL. He has no OP lesions. He has multiple missing or broken teeth. NECK: Supple and symmetric without significant lymphadenopathy. CARDIOVASCULAR: Regular rate and rhythm without murmurs, gallops or rubs. There is no chest wall te nderness. LUNGS: Clear to auscultation bilaterally with good chest wall expansion and air exchange. ABDOMEN: Tender in the epigastric area. There are no masses or hepatosplenomegaly noted. No reboun d. SKIN: Warm and dry without edema. LABORATORY DATA: Performed at the [facility] where the patient initially presented; sodium 1 36, potassium 3.7, chloride 99, CO2 of 29, BUN 21.7, creatinine 1.2, calcium 10.7, magnesium 1.9, AST 14, ALT 17, albumin 4.1, lactic acid less than 1.5. Troponin less than 0.01. White count 8.17, hem oglobin 14.4, platelets 141, lipase was 35. Chest x-ray was negative. EKG shows a normal sinus rhythm with some anterior T-wave changes. ASSESSMENT AND PLAN: 1. Chest pain. The patient has a history of tobacco abuse and has a history of a negative stress te st just over 1 year ago. However, he does have some T-wave changes on his EKG in the anterior leads. The prior EKG is not immediately available for review; however, the report from his admission at at time indicated that the T waves were actually normal. Therefore, this is concerning for the possi bility of a change in his electrocardiogram. The patient will be placed in observation on telemetry. We will continue to get serial cardiac isoenzymes and consult Cardiology given his risk factors of smoking and hypertension. It is also possible that this may simply be related to his multiple myelom a as it is similar to the symptoms he had on his initial presentation just over a year ago. 2. Abdominal pain, unclear if that is associated specifically with the chest pain. The patient has not had a bowel movement in 4 days and this could be purely constipation related. He describes his p ain primarily as crampy in nature. The patient will receive MiraLax and have PRNs available. 3. Multiple myeloma. The patient has not recently had the followup he was supposed to have. Will c all Oncology to see if we need to do anything differently while he is here immediately. 4. Hypertension. The patient has a history of hypertension on metoprolol and amlodipine. We will c ontinue with those medications. 5. Chronic pain syndrome. We will continue with the York. We will find out his methadone dosage. 6. A 15 pound weight loss for the last month. The patient appears to have some protein deficiency, likely secondary to simple anorexia. We will continue to monitor his intake while he is here. I conrado l consult dietitian.
[2018-04-30 11:35] LABS: Troponin I Less than 0.010 ng/mL (< 0.028)
[2018-04-30 13:41] VITALS: BMI 19.3
[2018-04-30 14:57] LABS: Troponin I Less than 0.010 ng/mL (< 0.028)
[2018-04-30] MEDS: Sodium Chloride 0.9% 1,000 ML IV SCH ×2 (15:37→20:10)
[2018-04-30] MEDS ORDERED: Pantoprazole 40 MG VIAL IVP SCH (16:30)
[2018-04-30] MEDS: Famotidine 20 MG TAB PO SCH ×2 (17:03→21:30)
--- NOTE | 2018-04-30 17:11 | PDOC.PN ---
- Subjective Encounter Start Date: 04/30/18 Encounter Start Time: 17:06 Now reports that his initial pain symptoms have resolved, but he has a globus sensation in the mid chest. Was able to eat without difficulty. Says he just can't get comfortable. - Objective Resuscitation Status: Resuscitation Status FULL:Full Resuscitation Vital Signs & Weight: Vital Signs (12 hours) Temp Pulse Resp BP Pulse Ox 04/30/18 13:07 99.1 F 56 L 18 124/60 95 Weight Admit Weight 115 lb 12.8 oz Weight 115 lb 12.8 oz Phys Exam - Physical Examination Constitutional: NAD Respiratory: no wheezing, no rales, no rhonchi, clear to auscultation bilateral Cardiovascular: RRR, no significant murmur Gastrointestinal: soft, no distention, positive bowel sounds Mildly diffusely tender. Musculoskeletal: no edema Psychiatric: normal affect Dx/Plan (1) Abdominal pain Code(s): R10.9 - UNSPECIFIED ABDOMINAL PAIN Status: Acute (2) Multiple myeloma Code(s): C90.00 - MULTIPLE MYELOMA NOT HAVING ACHIEVED REMISSION Status: Chronic Qualifiers: Multiple myeloma remission status: not in remission Qualified Code(s): C90.00 - Multiple myeloma not having achieved remission Comment: ChemoRx restarted. last 04/05/17. (3) Chest pain Code(s): R07.9 - CHEST PAIN, UNSPECIFIED Status: Resolved Comment: non cardiac pain - Plan * Cards started Prilosec and consulted GI which is completely appropriate in light of the current description of symptoms. GI and Onc consult pending.
[2018-04-30] MEDS ORDERED: HYDROcodone/Acetaminophen 5/325 mg Tablet PO PRN (18:00)
[2018-04-30] MEDS: HYDROcodone/Acetaminophen 10/325 mg Tablet PO PRN (18:33)
--- NOTE | 2018-04-30 20:26 | CON ---
DATE OF CONSULTATION: 04/30/2018 HISTORY: This patient is an unfortunate 53-year-old gentleman with multiple myeloma who presents wit h chest discomfort. The patient was seen approximately a year ago when he was diagnosed with multipl e myeloma for evaluation of chest pain. The patient underwent a stress test that revealed no evidenc e of ischemia. The patient was in usual state of health until 2 weeks ago when he developed left-miryam ed chest discomfort. This has been a persistent discomfort for the past 2 weeks. The discomfort is clearly made worse whenever he eats any food or drinks liquids. The patient went to the emergency ro om because of this persistent discomfort. PAST MEDICAL HISTORY: Significant for, 1. Multiple myeloma. 2. Hypertension. PAST SURGICAL HISTORY: He did have ankle surgery. SOCIAL HISTORY: He smokes a half pack per day. FAMILY HISTORY: There is no strong family history of heart disease. MEDICATIONS: Include metoprolol 25 b.i.d., Norvasc 10 daily, Protonix 40 daily, and valacyclovir 500 daily. He is also on iron sulfate 325 daily, and morphine tablets. REVIEW OF SYSTEMS: Notable for constipation. PHYSICAL EXAMINATION: GENERAL: This is a thin gentleman in no acute distress. VITAL SIGNS: Blood pressure 124/60. NECK: No jugular venous distention. LUNGS: Clear to auscultation. HEART: Regular rate and rhythm, normal S1, S2, no murmurs. ABDOMEN: Nondistended. EXTREMITIES: No edema. VASCULAR: Radial pulses 2+. LABORATORY DATA: Sodium 136, potassium 3.7, chloride 99, bicarbonate 29, BUN 21, creatinine is 1.2. White blood cell count is 8.1, hemoglobin 14.4, hematocrit 42.2 and his platelets were 141. His EKG revealed normal sinus rhythm with a T-wave abnormality suggestive of ischemia. IMPRESSION: 1. Chest pain, atypical, probably gastrointestinal. 2. Abnormal ECG. 3. Multiple myeloma. 4. Tobacco abuse. PLAN: This gentleman presents with chest pain very suggestive of gastrointestinal discomfort. He do es have EKG changes suggestive of ischemia. From a cardiac standpoint, his prognosis is poor with mu ltiple myeloma. We would treat the patient medically. We will restart the patient on his metoprolol . We will obtain a gastroenterology consultation. We will follow this patient with you through his hospitalization.
[2018-04-30] MEDS ORDERED: Metoprolol Tartrate 25 MG TAB PO SCH (21:00)
[2018-04-30] MEDS: Polyethylene Glycol 3350 17 GM Packet PO SCH (21:30)
[2018-04-30] MEDS: Metoprolol Tartrate 25 MG TAB PO SCH (21:30)
--- NOTE | 2018-04-30 22:17 | CON ---
DATE OF CONSULTATION: 04/30/2018 REASON FOR CONSULTATION: Multiple myeloma. HISTORY OF PRESENT ILLNESS: A 53-year-old -Pakistani male with history of multiple myeloma, diagnosed in 2017, currently on Velcade, Revlimid, and dexamethasone [facility] Dr. H[facility], presenting to the hospital with complaints of abdominal and chest pain. EKG in the ER showed possible T-wave changes in the anterior leads; however, this was not confirmed to a prior EKG. Cardiology was consulted given his risk factors of smoking and hypertension. The patient had a negative stress test over a year ago. Troponins have been negative x3 thus far. IgG kappa myeloma with a response to VRD chemotherapy and was then placed on maintenance Revlimid in 12/2017 and then had a rise in his protein levels and was then placed back on Velcade. Due to travel issues, patient only receives Velcade every 2 weeks, and continues on Revlimid 25 mg every 21 of 28 days. He also receives Zometa. The patient states a friend that transports him to the hospital for his treatment has been out of the country in [place] and does not return until next week and so he has missed his last 2 doses of Velcade due on 04/11 and 04/25. The patient states he is still taking his Revlimid, but has missed the last few days and has also not been taking his aspirin as directed. Patient states that his chest pain has slightly improved; however, he still has abdominal pain and states that both are worse with food intake. He does state his initial diagnosis of myeloma , presented with chest pain as well. He denies shortness of breath, cough, or fever. He states he has chronic diarrhea, but has not had a bowel movement in the last 3 or 4 days. He denies any other pains other than his chest. REVIEW OF SYSTEMS: Ten-point review of systems is negative other than those mentioned in the HPI. PAST MEDICAL HISTORY: Myeloma, hypertension, asthma, tobacco abuse, alcohol abuse. FAMILY HISTORY: Stroke. PAST SURGICAL HISTORY: Left ankle surgery. SOCIAL HISTORY: Alcohol abuse including beer and hard liquor. Previous 1 pack a day smoker, now down to half a pack per day. ALLERGIES: None. MEDICATIONS: Reviewed. PHYSICAL EXAMINATION: VITAL SIGNS: Blood pressure 137/81, pulse 59, respirations 18, temperature 98.5 , satting 99% on room air. GENERAL APPEARANCE: The patient is lying comfortably in bed, in no acute distress. Patient is very thin. CARDIOVASCULAR: Normal S1, S2 with regular rate and rhythm. LUNGS: Clear to auscultation bilaterally. ABDOMEN: Soft, nondistended, nontender. LYMPH: No lymphadenopathy. NEUROLOGIC: Nonfocal. LABORATORY DATA: Troponin less than 0.010 x3. ASSESSMENT AND PLAN: A 53-year-old -Pakistani gentleman with history of multiple myeloma on Velcade, Revlimid and dexamethasone, who has missed his last few treatments due to transportation issues presenting with chest pain. The patient has questionable T-wave changes on EKG and Cardiology has been consulted. His troponins, however, have been negative x3. The patient states his pain is worsened with food and has chest and abdominal pain and it looks like his stomach is his main source of pain. He also has not had a bowel movement in 4 days which may be contributing to his pain. It is unlikely this is related to myeloma. Patient has missed his last 2 doses of Velcade due to transportation issues and is not taking his Revlimid and aspirin as indicated in the last week. Patient's friend who transports [facility] and to the hospital has been out of the country and is returning next week, so hopefully the patient will get back to the clinic and restarted on treatment. There is no indication for any changes in his management for myeloma at this time. The patient may follow up with Dr. Haley upon discharge from the hospital. We will sign off. Thank you for this consult JULISSA
--- NOTE | 2018-05-01 00:10 | CON ---
DATE OF CONSULTATION: 04/30/2018 REASON FOR CONSULTATION: Midepigastric/chest pain. CONSULTING PHYSICIAN: Dr. Lester Gonzáles. HISTORY OF PRESENT ILLNESS: The patient is a 53-year-old -Swedish male with past medical his tory of hypertension, asthma, alcohol abuse, constipation, and multiple myeloma with last round of ch emotherapy approximately a month ago presenting with increased mid epigastric/chest pain. He states that he was in his usual state of health until approximately 4-5 days ago when he had the acute onset of midepigastric/lower substernal chest pain characterized as a sharp/burning type sensation, nonrad iating, constant with waxing and waning severity and would reach a severity of approximately 7/10. T he pain was worse with eating or drinking any type of food (no specific food triggers) and not having a bowel movement, but the pain, there was no clear alleviating factors during this time period, whic h ultimately prompted his admission. Associated symptoms also include difficulty with deep inspirati on and significant constipation having approximately 1 bowel movement every 4-5 days with his last michelle wel movement being approximately 5 days ago that was more of a small liquid type bowel movement. Cur rently, denies any nausea, vomiting, fevers, chills, diarrhea, or GI bleeding. Of note, he takes bot h methadone and hydrocodone concurrently for treatment of increased back pain secondary to his multip le myeloma. Of note, the patient is currently taking Linzess as an outpatient in regard to his chronic constipati on and adds that he has been hospitalized on occasion for severe constipation. When comparing his co nstipation pain to his current pain it is similar, although more severe on this particular occasion. REVIEW OF SYSTEMS: A 10-category review of systems was negative except for the pertinent positives a s listed in the HPI. PAST MEDICAL HISTORY: As per HPI. PAST SURGICAL HISTORY: Left ankle surgery. FAMILY HISTORY: Denies any GI malignancies. SOCIAL HISTORY: Smokes approximately one half to 1 pack per day. He denies any recent alcohol use, but does have a history of drinking a 12-pack of beer per week along with hard liquor. He denies any illicit drug use. OUTPATIENT MEDICATIONS: Include vitamin B12, ferrous sulfate 325 mg daily, folic acid 1 mg daily, me toprolol 25 mg b.i.d., pantoprazole 40 mg daily, amlodipine 10 mg daily, valacyclovir 500 mg daily, N orco 5/325 one tablet q.6 hours as needed for pain, and methadone. ALLERGIES: No known drug allergies. PHYSICAL EXAMINATION: VITAL SIGNS: Temperature 99.1, pulse 56, blood pressure 124/60, respiratory rate 18, satting 95% on room air. GENERAL: Patient is lying in bed in no acute distress. Alert and oriented x4. NECK: Supple. No JVD noted. CARDIOVASCULAR: Regular rate and rhythm. No discernible murmurs, gallops, or rubs. RESPIRATORY: Clear to auscultation bilaterally with no discernible wheezes or rales. ABDOMEN: Hypoactive bowel sounds, soft, no distention. Moderate tenderness to palpation in the mide pigastric/periumbilical region. EXTREMITIES: No cyanosis, clubbing, or edema. LABORATORY DATA: Only including a troponin of 0.01. There were no other studies available for jeremy austin. IMAGING DATA: No current GI imaging is available for review. ASSESSMENT AND PLAN: The patient is a 53-year-old male with past medical history of hypertension, as thma, alcohol abuse, constipation, and multiple myeloma, currently being treated with chemotherapy an d on chronic narcotic use as a resultant of his multiple myeloma, back pain presenting with increased mid epigastric/substernal chest pain. Mid epigastric/substernal chest pain. The patient is presenting with acute onset of increased midepi gastric abdominal pain/substernal chest pain has been present for the last 4-5 days that is character ized as a sharp/burning type sensation as well as some cramping in character associated with it. The pain is constant with a waxing and waning severity and does reach a severity of approximately 7/10. During the last several weeks, he has had significant constipation, having approximately 1 bowel mov ement every 4-5 days with his most recent bowel being approximately 5 days ago with a small volume li quid type bowel movement. He is taking Linzess as an outpatient with some improvement in his bowel h abits and when compared to his prior episodes of constipation in the past, the pain he is currently e xperiencing is similar to just more severe. At this time, the more likely explanation for his midepi gastric abdominal pain could be related to significant constipation and/or increased stool burden, ge nerating cramping, burning type sensation which could then radiate to his substernal chest. However, given the location of his burning substernal chest pain, increased acid reflux cannot be ruled out a t this time Bethany esophagitis be ruled out, especially given his recent chemotherapy approxim ately 1 month ago. RECOMMENDATIONS: 1. We would change the patient to MiraLax 17 grams twice daily as scheduled to facilitate passage of a bowel movement. 2. Would add lubiprostone 24 mcg per day in conjunction of using Linzess to facilitate having a gerson l movement. 3. I would also add naloxegol 25 mg daily to reverse the opiate effects on the gut and to help facil itate having a bowel movement. 4. I would continue pantoprazole 40 mg daily in light of increased substernal chest burning, subster nal chest pain, and probability of acid reflux. I would also recommend strict antireflux precautions while the patient is in the hospital (for example maintaining him an upright posture after meals for approximately 2 hours after meals and no meals within 2 hours of bedtime). I would also consider ch anging the dosing of the pantoprazole to 30-45 minutes before dinner. 5. We would obtain a CBC and chemistry to rule out any other additional processes. 6. We will hold off on upper endoscopy for right now with plans to treat his acid reflux, constipati on prior to endoscopic evaluation. We will continue to follow. Please call with any additional questions.
[2018-05-01] MEDS: Sodium Chloride 0.9% 1,000 ML IV SCH ×3 (00:30→20:45)
[2018-05-01 05:26] LABS: Anion Gap 8 mmol/L (10-20); BUN (Urea Nitrogen) 11 mg/dL (8.4-25.7); Calc. Creatinine Clearance 68 mL/min (70-130); Calcium 8.3 mg/dL (7.8-10.44); Carbon Dioxide 27 mmol/L (22-29); Chloride 105 mmol/L (98-107); Estimated GFR-MDRD Greater than 90; Glucose 81 mg/dL (70-105); Potassium 3.6 mmol/L (3.5-5.1); Sodium 136 mmol/L (136-145)
[2018-05-01 05:34] LABS: #Lymphocytes 1.1 thou/uL (1.20-3.40); #Monocytes 0.8 thou/uL (0.11-0.59); #Neutrophils 3.8 thou/uL (1.40-6.50); %Basophils 0.6 % (0.0-1.0); %Eosinophils 0.7 % (0.0-10.0); %Lymphocytes 18.4 % (21.0-51.0); %Monocytes 14.5 % (0.0-10.0); %Neutrophils 65.9 % (42.0-75.0); Hemoglobin 11.5 g/dL (14.0-18.0); MDiff Complete? YES; Macrocytosis SLIGHT = 6-15 cells (100X) (0-5/hpf); Mean Corpuscular HGB CONC 33.1 g/dL (32.0-36.0); Mean Platelet Volume 8.8 fL (7.4-10.4); PLT Morphology Comment Appears Decreased; Platelet Count 103 thou/uL (130-400); RBC Distribution Width 13.1 % (11.5-14.5); Red Blood Cell (RBC) Count 3.29 mill/uL (4.70-6.10); White Blood Cell (WBC) Count 5.8 thou/uL (4.8-10.8)
[2018-05-01] MEDS ORDERED: Linaclotide [Linzess] 145 MCG PO SCH (07:30)
[2018-05-01] MEDS ORDERED: Pantoprazole 40 MG VIAL IVP SCH (09:00)
[2018-05-01] MEDS: Lubiprostone 24 MCG CAP PO SCH (09:14)
[2018-05-01] MEDS: Polyethylene Glycol 3350 17 GM Packet PO SCH ×2 (09:14→20:42)
[2018-05-01] MEDS: Metoprolol Tartrate 25 MG TAB PO SCH ×2 (09:15→20:38)
[2018-05-01] MEDS: Famotidine 20 MG TAB PO SCH ×2 (09:15→21:18)
[2018-05-01] MEDS: valACYclovir 500 MG TAB PO SCH (09:15)
[2018-05-01] MEDS: HYDROcodone/Acetaminophen 10/325 mg Tablet PO PRN ×2 (09:21→18:16)
--- NOTE | 2018-05-01 09:46 | PDOC.PN ---
- Subjective Encounter Start Date: 05/01/18 Encounter Start Time: 09:44 Still has not had a BM. Does feel like his abdomen is feeling better in general. Still has a burning pain with swallowing. Feels like swallowed bolus is "sticking and pushing its way down." No real pain other than with swallowing. - Objective Resuscitation Status: Resuscitation Status FULL:Full Resuscitation Vital Signs & Weight: Vital Signs (12 hours) Temp Pulse Resp BP BP Pulse Ox 05/01/18 07:49 98.6 F 67 18 132/83 99 05/01/18 06:36 60 12 05/01/18 04:00 98.7 F 57 L 16 127/74 96 04/30/18 23:47 98.8 F 60 15 137/86 96 Weight Admit Weight 115 lb 12.8 oz Weight 115 lb 12.8 oz I&O: 04/30/18 05/01/18 05/02/18 06:59 06:59 06:59 Intake Total 1522 Output Total 1850 800 Balance -328 -800 Result Diagrams: 05/01/18 04:21 05/01/18 04:21 Phys Exam - Physical Examination Constitutional: NAD Respiratory: no wheezing, no rales, no rhonchi, clear to auscultation bilateral Cardiovascular: RRR, no significant murmur, no rub Gastrointestinal: soft, no distention, positive bowel sounds Slight epigastric TTP. Psychiatric: normal affect Dx/Plan (1) Abdominal pain Code(s): R10.9 - UNSPECIFIED ABDOMINAL PAIN Status: Acute (2) Multiple myeloma Code(s): C90.00 - MULTIPLE MYELOMA NOT HAVING ACHIEVED REMISSION Status: Chronic Qualifiers: Multiple myeloma remission status: not in remission Qualified Code(s): C90.00 - Multiple myeloma not having achieved remission Comment: Appreciate Oncology consult. No change in his chronic regimen. (3) Chest pain Code(s): R07.9 - CHEST PAIN, UNSPECIFIED Status: Resolved Comment: Multiple possible etiologies. GI and CV following. - Plan * Had abnormal EKG and has been started on Beta lobo. Further recs pending GI plan. * GI has made med changes to facilitate bowel movement, but no results yet. * Continues to have dysphagia. On PPI. GI following. * No change in long-term Multiple Myeloma treatment per Onc.
[2018-05-01] MEDS ORDERED: Morphine 2 MG/ML SYRINGE SLOW IVP SCH (14:45)
--- NOTE | 2018-05-01 16:50 | EKG ---
Test Reason : ER INDICATION Blood Pressure : / mmHG Vent. Rate : 062 BPM Atrial Rate : 062 BPM P-R Int : 128 ms QRS Dur : 082 ms QT Int : 446 ms P-R-T Axes : 056 029 005 degrees QTc Int : 452 ms Normal sinus rhythm Voltage criteria for left ventricular hypertrophy Abnormal ECG Confirmed by DR. Ketty OSBORNE MD ([id number]) on 05/01/2018 4:50:03 PM Referred By: FRANCA Confirmed By:DR. Ketty OSBORNE MD
--- NOTE | 2018-05-01 17:44 | PRG ---
DATE OF SERVICE: 05/01/2018 REASON FOR CONSULTATION: Mid epigastric/chest pain, odynophagia. SUBJECTIVE: The patient states that he attempted to eat either solid or liquids today and had signif icant increase in his odynophagia when compared to previous and has thus been unable to tolerate even liquids. He also continues to state that he has a sensation that it is getting stuck around the xip hoid process, but has worsened in terms of severity over the last 24-48 hours. He did have approxima tely one small volume semi-liquid bowel movement earlier today, but despite having a bowel movement, he does continue to have increased midepigastric substernal chest pain that is separate from his odyn ophagia type pain. Currently denies any nausea, vomiting, fevers, chills or GI bleeding. OBJECTIVE: VITAL SIGNS: Temperature 98.6, blood pressure 165/96, respiratory rate 19, satting 96% on room air. GENERAL: The patient is lying in bed in no acute distress, although does wince occasionally with mov ements in the bed, alert and oriented x4. CARDIOVASCULAR: Regular rate and rhythm. RESPIRATORY: Clear to auscultation bilaterally. ABDOMEN: Hypoactive bowel sounds, soft. No distention. Moderate tenderness to palpation in the mid epigastric/periumbilical region. EXTREMITIES: No cyanosis, clubbing or edema. LABORATORY DATA: CBC with a white blood cell count of 5.8, hemoglobin 11.5, hematocrit 34.8 and plat elets 103. Chemistry with sodium of 136, potassium 3.6, chloride 105, CO2 of 27, BUN 11, creatinine 0.96, glucose 81. IMAGING DATA: No current GI imaging is available for review. ASSESSMENT AND PLAN: The patient is a 53-year-old male with past medical history of hypertension, as thma, alcohol abuse, opiate-induced constipation and multiple myeloma, currently being treated with c hemotherapy, presenting with increased midepigastric/substernal chest pain in addition to odynophagia . 1. Mid epigastric/substernal chest pain. The patient is presenting with acute onset of increased mi depigastric/substernal chest pain presented for the last 4-5 days prior to admission characterized as a sharp burning type sensation. The pain is constant with waxing/waning severity but has worsened o carolin the course of the last few weeks as well as during this particular hospitalization. He has been placed on aggressive bowel regimen in order to facilitate having a bowel movement and despite having a smaller bowel movement today, he has not had any significant relief in this particular pain. When compared to his prior constipation type pain in the past, his midepigastric abdominal pain is consist ent with the type and location, although the severity seems worse during this hospitalization. Recommendations: We would continue aggressive bowel regimen to include MiraLax 17 grams twice daily, lubiprostone 24 mcg daily as well as minoxidil 25 mg daily in an attempt to facilitate having a gerson l movement secondary to opiate-induced constipation. 2. Odynophagia. The patient is presenting with increased odynophagia with the inability to tolerate oral intake with either solids or liquids that has been worsening over the last 48-72 hours. This i s also accompanied by symptoms of dysphagia with sensation that food is getting stuck at the level of the mid chest with both solids and liquids. He has been on aggressive PPI regimen during this hospi talization with no significant improvement in symptoms worrisome for another process other than acid reflux. However, given the location of his pain character and alleviating or exacerbating factors, g astroesophageal reflux disease is still on the differential; however, the differential could also inc lude Bethany esophagitis, viral esophagitis and/or ulceration of the esophagus, gastroparesis, esopha geal dysmotility, eosinophilic esophagitis (less likely), diffuse esophageal spasm (less likely) and/ or GI neoplasm. RECOMMENDATIONS: 1. Would continue pantoprazole 40 mg daily in light of possible acid reflux. Would strongly encoura ge strict antireflux precautions. (Patient has not been adherent to any of these during this hospita lization.) 2. We will plan for EGD tomorrow for intraluminal evaluation of the esophagus and stomach for etiolo gy of his odynophagia. Please make patient n.p.o. at midnight in preparation for this procedure. We will continue to follow. Please call with any additional questions.
[2018-05-02] MEDS: Sodium Chloride 0.9% 1,000 ML IV SCH ×2 (07:24→19:54)
[2018-05-02] MEDS ORDERED: Ondansetron HCl/PF 4 MG/2 ML Vial IVP PRN (11:31)
[2018-05-02] MEDS: Polyethylene Glycol 3350 17 GM Packet PO SCH (12:20)
[2018-05-02] MEDS: valACYclovir 500 MG TAB PO SCH (12:21)
[2018-05-02] MEDS: Lubiprostone 24 MCG CAP PO SCH (12:21)
[2018-05-02] MEDS: HYDROcodone/Acetaminophen 10/325 mg Tablet PO PRN (12:21)
[2018-05-02] MEDS: Famotidine 20 MG TAB PO SCH ×2 (12:21→20:31)
[2018-05-02] MEDS: Metoprolol Tartrate 25 MG TAB PO SCH (12:21)
--- NOTE | 2018-05-02 12:41 | OP ---
PREOPERATIVE DIAGNOSIS: Odynophagia. DESCRIPTION OF PROCEDURE: After informed consent was obtained, the patient was placed in the left la teral decubitus position. Anesthesia was administered per the Anesthesia Department. Forward-viewin g endoscope was inserted into the esophagus under direct visualization with ease and passed to the se cond portion of the duodenum with ease. Second portion of the duodenum and duodenal bulb were normal . The pylorus, antrum, body, fundus, and cardia were normal. Retroflexion in the stomach was normal . The esophagus showed severe esophagitis involving the distal one-half of the esophagus consistent with reflux esophagitis. Biopsies were taken. ASSESSMENT: 1. Severe grade D reflux esophagitis - status post biopsy. 2. Otherwise, normal esophagogastroduodenoscopy. RECOMMENDATIONS: 1. Increase Protonix to twice daily. 2. Resume diet. 3. Stable for discharge from GI standpoint.
[2018-05-02 16:07] VITALS: BP 133/77; TEMP 98.8
[2018-05-02] MEDS ORDERED: Pantoprazole 40 MG VIAL IVP SCH (21:00)
== END 2018-05-02 20:39 | disposition home or self-care (01) | DRG 392 ==
LOC: ERS 05:43 → ERHOLD 08:22 → INTOOBSV 08:22 → OBSVTOIN 08:22 → 2SW 13:07 → ONC 05-01 18:28
PROVIDERS: ADMIT Internal Medicine; ATTEND Internal Medicine
PROC: 0DB58ZX Excision of Esophagus, Via Natural or Artificial Opening Endoscopic, Diagnostic (ICD-10-PCS; principal; 2018-05-02)
DX: K21.0 Gastro-esophageal reflux disease with esophagitis (principal); C90.00 Multiple myeloma not having achieved remission; Z68.1 Body mass index [BMI] 19.9 or less, adult; R13.10 Dysphagia, unspecified; M54.9 Dorsalgia, unspecified; I10 Essential (primary) hypertension; J45.909 Unspecified asthma, uncomplicated; D64.9 Anemia, unspecified; F17.210 Nicotine dependence, cigarettes, uncomplicated; Z79.899 Other long term (current) drug therapy; Z79.891 Long term (current) use of opiate analgesic; G89.4 Chronic pain syndrome; R63.0 Anorexia; Z92.21 Personal history of antineoplastic chemotherapy; R07.9 Chest pain, unspecified; K59.03 Drug induced constipation
CPT/HCPCS: 36415; 80048; 84484; 85025; 88305; 88312; 88313; 93005; 96374; 99406; A4216; C9113; J2270; J3010; J7620

== ENCOUNTER 2019-06-27 15:44 | Outpatient (CLI) | payer OTHER ==
--- NOTE | 2019-06-27 16:30 | RAD ---
RADIOGRAPHIC BONE SURVEY 06/27/19 INDICATION: History of multiple myeloma. COMPARISON: MR lumbar spine dated 08/30/17, CTA of the chest dated 04/04/17 and adult bone survey dated 03/21/17. FINDINGS: There are punctate region of oval lucency involving the frontal skull on lateral projection consisten t with calvarial involvement. There are multiple compression abnormalities of the thoracolumbar spine spanning T10 through L5 consistent with pathologic fractures. These were seen on the MR lumbar spine on 08/30/17. Small well circumscribed osteolytic lesion is seen involving the capitellum. Two separat e lesions are seen involving the proximal left humerus. There are multiple small osteolytic lesions i nvolving the ribs. No suspicious osteolytic lesions are seen involving the femurs or foreleg osseous structures. There is healed fracture deformity involving the distal fibular shaft. IMPRESSION: 1. Scattered osteolysis involving the frontal skull, ribs, thoracolumbar spine, proximal left h umerus and right capitellum consistent with the patient's history of multiple myeloma. 2. Multiple chronic pathologic wedge compression abnormalities of T10 through L5. POS: OFF
== END 2019-06-27 15:45 | disposition home or self-care (01) ==
LOC: BICRAD 15:44
PROVIDERS: ATTEND Internal Medicine Hematology & Oncology
DX: C90.00 Multiple myeloma not having achieved remission (principal); M89.59 Osteolysis, multiple sites; M43.8X4 Other specified deforming dorsopathies, thoracic region; M43.8X6 Other specified deforming dorsopathies, lumbar region
CPT/HCPCS: 36415; 77075; 80053; 82248; 83615; 83883; 84100; 84165; 84550